=== PATIENT | female | born 1990 | race Caucasian/White ===

== ENCOUNTER 2016-09-16 21:31 | Emergency (ER) | payer OTHER ==
[~2016-09-16] VITALS: Ht 170.2 cm; Wt 65.0 kg
[~2016-09-16 21:31] MED LIST: DIPH50C PO; DSS100 PO; FAMO40TA72 PO; IBUP-1152 PO; PER5 PO
[2016-09-16 21:43] VITALS: BP 145/80; PULSE 63; RESP 18; O2SAT 91
[2016-09-16 22:14] VITALS: BP 118/72; PULSE 79; RESP 20; O2SAT 98
--- NOTE | 2016-09-16 23:14 | ED.REPORT ---
HPI-Abd Pain F Under 39 Date of Service Sep 16, 2016 ED Provider: Eric Kumar MD A 26 year old female with a history of ovarian cysts presents to the ED complaining of left lower quadrant abdominal pain. The patient has not had normal menstruation cycle for the last 9 years, describing her cycle as hit and miss. Current pain is worse than these intermittent episodes. Associated symptoms include vaginal bleeding. Nursing Notes Stated Complaint: SEVERE ABD PAIN Chief Complaint: Female Abdominal Pain Nursing Notes Reviewed: Yes Allergies: Coded Allergies: amoxicillin (Verified Allergy, Unknown, 08/20/15) Uncoded Allergies: PCN (Allergy, Unknown, 08/20/15) Scheduled Diphenhydramine Hcl (Benadryl) 50 Mg Capsule 50 MG PO Q6H Docusate Sod-Expunged Drug, Do Not Renew! (Docusate Sod-Expunged Drug, Do Not Renew!) 100 Mg Capsule 100 MG PO BID One capsule by mouth twice daily to keep stools soft. Drink 2L of water daily while taking. Discontinue if loose stools occur. Famotidine (Pepcid) 40 Mg Tablet 40 MG PO DAILY Scheduled PRN IBUPROFEN-Expunged Drug, Do Not Renew! (IBUPROFEN-Expunged Drug, Do Not Renew!) 800 Mg Tablet 800 MG PO Q8 PRN PRN One tablet every 8 hours as needed for mild to moderate pain and cramping. Please take with food. oxyCODone/APAP-Expunged, Do Not Renew! (oxyCODone/Apap 5/325mg-Expunged, Do Not Renew) Tablet 1-2 TAB PO Q6 PRN PRN One to two tablets every 6 hours by mouth as needed for severe pain. General Time Seen by MD: 23:12 Chief Complaint Abdominal pain Hx Obtained From: Patient Arrived By: Walk-in Onset Occurred: 5 - 8 hours ago Symptom Duration: Since onset Progression since Onset: Unchanged Severity: Current: Severe Severity: Maximum: Severe Recent Healthcare: No recent doctor visit Similar Sx Previous: No Past Medical History Past Medical History Last pelvic US at age 18. No normal menstrual cycle. Past Surgical History Reports: , Tonsillectomy Social History Alcohol Use: Denies alcohol use Drug Use: Denies drug use Other Social History: Smokeless tobacco, Good social support, Local resident Ambulatory Status Independent Review of Systems Constitutional: Denies: Chills, Fever GI: Reports: Abdominal pain Female: Reports: Vaginal bleeding - abnl Complete sys rev & neg: except as marked. Physical Exam Initial Vital Signs Vital Signs (First) Date Time Temp Pulse Resp B/P Pulse Ox O2 Delivery O2 Flow Rate FiO2 09/16/16 22:14 36.8 79 20 118/72 98 Room Air Initial VS: Reviewed, Vital signs normal General/Constitutional: Awake, Alert Respiratory / Chest: Atraumatic, Breath sounds NL, Breath sounds = bilat, No respiratory distress, No rales, No rhonchi, No wheezing Cardiovascular: Heart rate NL, Regular rhythm, Heart sounds NL, No gallop, No murmurs, No rubs Tenderness/Guarding/Rebound: Positive: Tender LLQ... (rest of abdomen is soft and nontender) Back: Atraumatic Head / Eyes: Atraumatic, Normocephalic, PERRL, EOMI Skin: Color NL, Warm, Dry Neurologic: Oriented X3, Speech NL Upper Extremity / MS: No swelling, No edema Lower Extremity / Pelvis / MS: No swelling, No edema Interpretation & Diagnostics Lab Results Interpretation Test 09/16/16 23:34 Hold Urine Received (Received) US Focused non-OB Pelvis US Pelvis Complete, transvaginal IMPRESSION: Within the left adnexa is a prominent fallopian tube with internal echoes and increased vascularity. In the proper clinical setting, hydrosalpinx or pyosalpinx should be considered. Signed by Richie Duomnt M.D., 09/17/2016, 0108 Re-Eval/Medical Decision Med Decision/Clinical Course 26-year-old female with a history of ovarian cysts presents with left lower quadrant abdominal pain. Ultrasound shows that she has no ovarian cyst or other ovarian pathology. Her is some hyperemia/inflammation of the distal left fallopian tube. GEN probe testing is currently pending. She was given Rocephin and azithromycin single-dose treatments. She will return to the emergency room if there is significant worsening. She will follow-up with her regular doctor for culture results. Source of Hx: Old records Re-Evaluation/Progress : Time of Eval: 01:55 Re-Evaluation/Progress Note: Rechecked patient and counseled her to go through with shot. Explained diagnosis, test results, and plan for discharge. Patient understands and agrees with the plan. All questions addressed. Counseled Regarding: Diagnosis, Lab results, Need for follow-up, When/why to return to ED Discharge & Departure Primary Impression: Salpingitis Disposition: Home Discharge Condition All VS Reviewed: Yes Condition: Stable Patient Instructions: Pelvic Inflammatory Disease (ED) Additional Instructions: There appears to be an infection of the left fallopian tube where it overlies the ovary. The source of infection is not known. Azithromycin 1 g by mouth and Rocephin 250 mg IM was given in the emergency room. Follow up as planned with Dr. Pulido. Referrals: Gumaro Pulido MD (PCP) [facility] Attestation Portions of this note were transcribed by Porfirio Donato. I, Dr. Kumar personally performed the history, physical exam and medical decision-making; I reviewed and confirmed the accuracy of the information in the transcribed note. Signed by: Trev Patel, 09/17/2016 and 0503. copies to: Gumaro Pulido MD, Howard L MD Sep 16, 2016 23:14 Porfirio Donato Sep 16, 2016 23:25
[2016-09-17] MEDS ORDERED: cefTRIAXone Inj 250 MG, Lidocaine PF 1% Inj 0.9 ML in Syringe 1 EACH IM ONE (01:15)
[2016-09-17] MEDS ORDERED: cefTRIAXone 1,000 mg Inj IM ONE (01:30)
--- NOTE | 2016-09-17 12:29 | DRSVH ---
PROCEDURE: US PELVIC SONOGRAM + TRANSVAGINAL SONOGRAM INDICATIONS: lef tpelciv pain, R/O torsion TECHNIQUE: Real-time scanning was performed of the pelvic organs, with image documentation. Additional endovagi nal scanning was necessary due to incomplete visualization of the adnexal and endometrial structures by transabdominal scanning. COMPARISON: None. FINDINGS: Transabdominal scanning: Limited scanning through the kidneys shows no hydronephrosis. No pathologi c free abdominal or pelvic fluid. Endovaginal scanning: Uterus: Uterus is normal in size at 9.0 x 4.0 x 5.6 cm. The endometrium measures 7.3 mm in combined thickness. Ovaries: The right ovary measures 35 x 18 x 32 mm. The left ovary measures 39 x 21 x 44 mm. IMPRESSION: Both ovaries demonstrate normal appearance. No enlarged hypoechoic left ovary is seen to suggest torsion. In addition blood flows equivalent on both sides. Uterus is normal in appearance. Dictated by: Olu Baires M.D. on 09/17/2016 at 12:24 Approved by: Olu Baires M.D. on 09/17/2016 at 12:28
== END 2016-09-17 02:25 | disposition home or self-care (01) ==
LOC: SED 21:31
DX: N70.91 Salpingitis, unspecified (principal); Z88.1 Allergy status to other antibiotic agents
CPT/HCPCS: 76830; 76856; 81025; 87491; 87591; 93005; 96372; 99285; J0696